=== PATIENT | male | born 1975 | race Hispanic/Latino ===

== ENCOUNTER 2018-02-06 03:54 | Emergency (ER) | payer OTHER ==
[2018-02-06 05:18] LABS: BUN/Creatinine Ratio 19; Blood Urea Nitrogen 23 mg/dL (9-20); Calcium 9.7 mg/dL (8.4-10.2); Hemolysis Index 27
[2018-02-06] MEDS ORDERED: NACL 0.9% 1000 ML 1,000 ML IV ONE ×3 (05:21→06:51)
[2018-02-06 05:22] LABS: Basophils # (Auto) 0.1 K/mm3 (0.0-0.1); Basophils % (Auto) 0.4 % (0.0-1.8); Eosinophils % (Auto) 0.1 % (0.0-4.3); Hematocrit 43.1 % (35.5-45.6); Hemoglobin 14.8 gm/dl (11.8-15.2); Lymphocytes # (Auto) 0.8 K/mm3 (1.2-5.4); Mean Corpuscular HGB Conc 34 % (32-34); Mean Corpuscular Hemoglobin 31 pg (28-32); Mean Corpuscular Volume 89 fl (84-94); Monocytes # (Auto) 0.8 K/mm3 (0.0-0.8); Monocytes % (Auto) 5.2 % (0.0-7.3); Platelet Count 284 K/mm3 (140-440); Red Blood Count 4.83 M/mm3 (3.65-5.03); Red Cell Distribution Width 13.3 % (13.2-15.2)
[2018-02-06] MEDS ORDERED: ATIVAN IV ONE (06:51)
--- NOTE | 2018-02-06 07:33 | Emergency Department Report ---
HPI - General Chief Complaint: Psych Time Seen by Provider: 02/06/18 06:40 - HPI HPI: The patient is a 42-year-old male who presents via local law enforcement for evaluation of agitation. The patient reports experiencing severe agitation last night after drug use, positive for hours, exacerbated with external stimuli , and associated with insomnia for the past 3 days. The patient admits to methamphetamine use. Per the patient's girlfriend the patient did not experience trauma to the head or syncope when being detained by local PD. Although he experience agitation last night, he states that it completely resolved prior to my evaluation. The patient denies fever, headache, chest pain , dyspnea, back pain, abdominal pain, flank pain, paresthesias or motor weakness , unexplained weight loss or weight gain, heat or cold intolerance, skin, hair, or nail changes, other neuro deficits, homicidal ideations, or auditory or visual hallucinations. ED Past Medical Hx - Past Medical History Previous Medical History?: Yes Hx Psychiatric Treatment: Yes (Bipolar, Depression) - Surgical History Past Surgical History?: Yes - Social History Smoking Status: Current Every Day Smoker Substance Use Type: Cocaine, Marijuana, Methamphetamines - Medications Home Medications: Home Medications Medication Instructions Recorded Confirmed Last Taken Type Venlafaxine 75 mg PO DAILY 02/06/18 02/06/18 Unknown History ED Review of Systems ROS: Stated complaint: METH RELAPSE Other details as noted in HPI Constitutional: denies: fever ENT: denies: throat or neck pain Respiratory: denies: cough, shortness of breath Cardiovascular: denies: chest pain Endocrine: denies unexplained weight loss or gain Gastrointestinal: denies: abdominal pain, nausea Genitourinary: denies: dysuria Musculoskeletal: denies: leg swelling Skin: denies: rash Neurological: denies: headache Hematological/Lymphatic: denies: easy bleeding or easy bruising Psych: Reports insomnia, agitation reported also (per PD & GF) Physical Exam - Physical Exam Vital Signs: Vital Signs 02/06/18 02/06/18 02/06/18 04:10 04:48 05:00 Temperature 98 F Pulse Rate 62 146 H Respiratory 18 23 Rate Blood Pressure 145/89 142/69 O2 Sat by Pulse 100 85 96 Oximetry 02/06/18 02/06/18 02/06/18 05:10 05:11 05:15 Temperature Pulse Rate 139 H Respiratory 16 16 16 Rate Blood Pressure 152/93 O2 Sat by Pulse 95 100 95 Oximetry 02/06/18 02/06/18 02/06/18 05:30 05:46 06:00 Temperature Pulse Rate 133 H 125 H 128 H Respiratory 18 18 18 Rate Blood Pressure 152/93 152/93 152/93 O2 Sat by Pulse 95 93 90 Oximetry 02/06/18 02/06/18 02/06/18 06:16 06:30 06:45 Temperature Pulse Rate 120 H 113 H 105 H Respiratory 15 17 25 H Rate Blood Pressure 152/93 152/93 125/79 O2 Sat by Pulse 96 97 96 Oximetry Physical Exam: General: well-nourished, well-developed, no acute distress Head: Normocephalic, atraumatic Eyes: normal sclera, PERRL, EOM intact ENT: Mucous membranes are pale and dry Neck: No neck stiffness, no cervical adenopathy, no midline tenderness overlying cervical bony process Respiratory: Breath sounds equal bilaterally, no wheezing, rales, or rhonchi Cardio: S1 and S2 present, no murmurs, rubs, gallops, capillary refill is delayed Abdomen: Normoactive bowel sounds, soft abdomen, no tenderness Chest WALL/Back: No tenderness to palpation of the chest wall, no CVA tenderness with percussion Musc: No pitting edema Skin: No rash Neuro: alert oriented x3, normal cognition, speech normal, no facial drooping, no uvula or tongue deviation on protrusion, no deficit with rotation of neck or shoulder shrug, no obvious gross motor deficit in the upper or lower extremities with flexion or extension at the shoulder, elbow, wrist, hip, knee, or ankle bilaterally, no obvious gross sensation deficit to crude touch or 2 pt discrimination, 2+ symmetric reflexes on DTR testing, no coordination deficit with [id number] or [id number] testing, Babinski downgoing, romberg negative Psych: Patient remorseful, flat affect, normal insight, no delusions or hallucinations, no agitation ED Course Vital Signs 02/06/18 02/06/18 02/06/18 04:10 04:48 05:00 Temperature 98 F Pulse Rate 62 146 H Respiratory 18 23 Rate Blood Pressure 145/89 142/69 O2 Sat by Pulse 100 85 96 Oximetry 02/06/18 02/06/18 02/06/18 05:10 05:11 05:15 Temperature Pulse Rate 139 H Respiratory 16 16 16 Rate Blood Pressure 152/93 O2 Sat by Pulse 95 100 95 Oximetry 02/06/18 02/06/18 02/06/18 05:30 05:46 06:00 Temperature Pulse Rate 133 H 125 H 128 H Respiratory 18 18 18 Rate Blood Pressure 152/93 152/93 152/93 O2 Sat by Pulse 95 93 90 Oximetry 02/06/18 02/06/18 02/06/18 06:16 06:30 06:45 Temperature Pulse Rate 120 H 113 H 105 H Respiratory 15 17 25 H Rate Blood Pressure 152/93 152/93 125/79 O2 Sat by Pulse 96 97 96 Oximetry ED Medical Decision Making - Lab Data Result diagrams: 02/06/18 04:54 02/06/18 04:54 - Medical Decision Making The patient was seen and examined by myself. The patient is placed on a surveillance system monitor and continuous pulse ox. On initial evaluation, the patient was found to be in no distress. Labs are obtained. The patient is given multiple normal saline fluid boluses for treatment of his dehydration and tachycardia. He is given IV Ativan for treatment of restlessness. Lab results exhibiting mildly elevated WBC of 16, likely secondary to stress reaction, and otherwise labs are grossly unremarkable. The patient is medically clear. Mental health is consulted. Mental health evaluates the patient and agrees that the patient is negative for findings concerning for acute madie, acute psychosis, or risk of harm to himself or others. The patient was monitored in the emergency department for 5 hours. The patient was reevaluated and reported that their symptoms were resolved. The patient remains alert and oriented 3, with normal neuro exam, and no signs of agitation or suicidal ideation/homicidal ideation throughout my management of the patient, and he is stable for discharge with outpatient follow-up. The patient is given follow-up and return instructions. The patient expressed understanding and agreed with the plan. The patient is discharged in stable condition. Critical care attestation.: If time is entered above; I have spent that time in minutes in the direct care of this critically ill patient, excluding procedure time. ED Disposition Clinical Impression: Dehydration, Methamphetamine intoxication, Acute drug intoxication with delirium Disposition: -01 TO HOME OR SELFCARE Is pt being admited?: No Does the pt Need Aspirin: No Condition: Stable Instructions: Methamphetamine Abuse (ED), Polysubstance Abuse (ED) Referrals: [facility] [Outside] - 3-5 Days [facility] [Outside] - 3-5 Days Time of Disposition: 07:17
[2018-02-06 08:39] LABS: Bilirubin,Urine NEG (Negative); Blood,Urine NEG (Negative); Color,Urine Yellow (Yellow); Mucus,Urine FEW /HPF; Protein,Urine <15 mg/dL mg/dL (Negative); Urobilinogen,Urine < 2.0 mg/dL (<2.0)
[2018-02-06 09:04] VITALS: BP 127/101
[2018-02-06 09:10] LABS: Benzodiazepines Screen,Urine PRESUMPTIVE NEGATIVE; Cannabinoid Screen,Urine PRESUMPTIVE NEGATIVE; Cocaine Screen,Urine PRESUMPTIVE NEGATIVE; Methadone Screen,Urine PRESUMPTIVE NEGATIVE; Opiate Screen,Urine PRESUMPTIVE NEGATIVE
[2018-02-06 09:26] LABS: Amphetamine Screen,Urine PRESUMPTIVE POSITIVE
== END 2018-02-06 09:29 | disposition home or self-care (01) ==
LOC: ED 03:54
DX: E86.0 Dehydration (principal); F15.121 Other stimulant abuse with intoxication delirium; F12.10 Cannabis abuse, uncomplicated; F14.10 Cocaine abuse, uncomplicated; F31.9 Bipolar disorder, unspecified; F17.200 Nicotine dependence, unspecified, uncomplicated; Z79.899 Other long term (current) drug therapy
CPT/HCPCS: 36415; 80048; 80307; 81001; 85025; 93005; 93010; 96361; 96374; 99285; G0480; J2060; J7030; 80320